=== PATIENT | female | born 1980 | race Two or more races ===

== ENCOUNTER 2021-09-13 20:55 | Emergency (ER) | payer OTHER ==
[~2021-09-13] VITALS: Ht 162.6 cm; Wt 77.1 kg
[2021-09-14 00:04] LABS: Basophils # (auto) 0 10 ^3/uL (0-0.2); Eosinophils # (auto) 0 10 ^3/uL (0-0.8); Monocytes # (auto) 0.2 10 ^3/uL (0-1.3); Red Cell Distribution Width 15.5 % (11.8-14.3); White Blood Cell 7.3 10^3/uL (4.4-10.8)
[2021-09-14 00:11] LABS: Basophils % (auto) 0.5 % (0.0-2.0); Eosinophils % (auto) 0.3 % (0.0-7.0); Hematocrit 31.6 % (36.0-46.0); Hemoglobin 10.6 g/dL (12.2-16.2); Lymphocytes % (auto) 27.6 % (10.0-50.0); Mean Corpuscular Hemoglobin 26.7 pg (28.0-32.0); Mean Corpuscular Hgb Conc. 33.7 g/dL (32.0-36.0); Mean Corpuscular Volume 79.2 fL (80.0-100.0); Monocytes % (auto) 3.1 % (0.0-12.0); Neutrophils % (auto) 68.5 % (37.0-80.0); Nucleated Red Blood Cells % 0.2 %; Red Blood Cells 3.99 10^6/uL (4.0-5.20)
[2021-09-14 00:23] LABS: Albumin 3.9 g/dL (3.4-5.0); Potassium 3.5 mmol/L (3.5-5.1)
[2021-09-14 01:14] LABS: Bilirubin, Total 0.2 mg/dL (0.2-1.0); Total Protein 7.2 g/dL (6.4-8.2)
[2021-09-14] MEDS ORDERED: diazePAM 5 MG TAB ONE (02:37)
[2021-09-14] MEDS ORDERED: diazePAM 5 MG TAB PO ONE (02:45)
[2021-09-14] MEDS ORDERED: ONDANSETRON HCL 4 MG/2 ML VIAL IV ONE (05:45)
[2021-09-14] MEDS ORDERED: ONDANSETRON HCL 4 MG/2 ML VIAL ONE (05:46)
[2021-09-14 05:50] VITALS: BP 121/70
[2021-09-14 05:56] LABS: Urine Bacteria FEW /hpf (None Seen); Urine Blood 3+ /uL (Negative); Urine Mucus FEW (None Seen); Urine Specific Gravity 1.027 (1.001-1.035); Urine WBC 2 /hpf (0 - 5)
[2021-09-14] MEDS ORDERED: PARoxetine 20 MG TAB PO ONE (06:15)
[2021-09-14 06:20] LABS: Amphetamine Screen, Urine NEGATIVE (NEGATIVE); Barbiturate Scree,Urine NEGATIVE (NEGATIVE); Benzodiazephine Screen, Urine POSITIVE (NEGATIVE); Cannabinoid Screen, Urine POSITIVE (NEGATIVE); Cocaine Screen, Urine NEGATIVE (NEGATIVE); Opiate Scree,Urine POSITIVE (NEGATIVE); Phencyclidine Screen, Urine NEGATIVE (NEGATIVE)
== END 2021-09-14 07:06 | disposition left against medical advice (07) ==
LOC: EDBD 20:55 → ER 20:59
DX: R53.1 Weakness (principal); Z53.21 Procedure and treatment not carried out due to patient leaving prior to being seen by health care provider
CPT/HCPCS: 36415; 80053; 80307; 81001; 83880; 84484; 85025; J2405

== ENCOUNTER 2024-05-24 00:27 | Emergency (ER) | payer OTHER ==
[~2024-05-24] VITALS: Ht 165.1 cm; Wt 71.3 kg
[2024-05-24] MEDS: ONDANSETRON ODT 4 MG TAB PO ONE (02:42)
[2024-05-24] MEDS: LORazepam 2MG/ML-1ML VIAL IM ONE (02:43)
[2024-05-24 02:47] VITALS: BP 143/59; PULSE 83; RESP 17; TEMP 98.5; O2SAT 100
== END 2024-05-24 04:26 | disposition left against medical advice (07) ==
LOC: ER 00:27
DX: F41.9 Anxiety disorder, unspecified (principal); R10.2 Pelvic and perineal pain
CPT/HCPCS: 36415; 84702; 96372; 99283; J2060; Q0162